=== PATIENT | female | born 1945 | race Caucasian/White ===

== ENCOUNTER → 2016-11-05 | Outpatient (CLI) | payer MEDICARE ==
[~2016-11-05] MED LIST: ATIVAN1 MG PO
== END | disposition home or self-care (01) ==
LOC: RAD 10:38
DX: M81.0 Age-related osteoporosis without current pathological fracture (principal); M85.862 Other specified disorders of bone density and structure, left lower leg; M54.5 Low back pain; M25.551 Pain in right hip; Z78.0 Asymptomatic menopausal state

== ENCOUNTER 2016-11-18 10:35 | Inpatient (IN) | payer MEDICARE ==
[~2016-11-18] VITALS: Ht 167.6 cm; Wt 77.3 kg
[2016-11-18] MEDS ORDERED: BUPROPION HYDR100 MG PO (10:40)
[2016-11-18] MEDS ORDERED: SIMVASTATIN40 MG PO (10:41)
[2016-11-18] MEDS ORDERED: ELIQUIS5 M1 PO (10:41)
[2016-11-18] MEDS ORDERED: TEMAZEPAM30 MG PO (10:41)
[2016-11-18] MEDS ORDERED: CALCIUM 600 +1 EA10 PO (10:41)
[2016-11-18 10:42] VITALS: BP 126/78
[2016-11-18 11:21] LABS: BASO % 0.6 % (0.0-1.0); EOS % 0.3 % (1.0-4.0); HEMATOCRIT 39.8 % (37.0-47.0); HEMOGLOBIN 13.3 g/dl (12.0-16.0); LYMPH % 15.5 % (27.0-41.0); MEAN CELL VOLUME 93.2 fl (81.0-99.0); MEAN CORPUSCULAR HGB 31.1 pg (27.0-31.0); MEAN CORPUSCULAR HGB CONC 33.4 g/dl (33.0-37.0); MEAN PLATELET VOLUME 9.1 fl (9.6-12.3); MONO # 0.5 10*3/uL (0.1-1.0); MONO % 7.1 % (3.0-9.0); NEUT # 5.1 10*3/uL (2.3-7.9); NEUT % 76.2 % (47.0-73.0); PLATELET COUNT AUTOMATED 202 10*3/uL (130-400); RED BLOOD COUNT 4.27 10*6/uL (4.10-5.10); RED CELL DISTRI WIDTH 13.2 % (0-14.5); WHITE BLOOD COUNT 6.7 10*3/uL (4.8-10.8)
[2016-11-18 11:36] LABS: ALBUMIN 3.9 gm/dl (3.1-4.5); ALKALINE PHOSPHATASE 80 U/L (45-117); BILIRUBIN, TOTAL 0.3 mg/dl (0.2-1.0); BUN 9 mg/dl (7-24); CARBON DIOXIDE 26 mmol/L (21-32); CHLORIDE 104 mmol/L (98-107); EST GLOM FILT AFRICAN AMERICAN > 60 ml/min; GLUCOSE 84 mg/dL (65-99); POTASSIUM 3.9 mmol/L (3.5-5.1); SGOT/AST 21 IU/L (3-35); SGPT/ALT 19 U/L (12-78); SODIUM 141 mmol/L (136-145); TOTAL PROTEIN 7.6 gm/dL (6.4-8.2)
[2016-11-18] MEDS ORDERED: AUGMENTIN 875875 MG PO (12:29)
[2016-11-18] MEDS ORDERED: PREDNISONE20 M1 PO (12:29)
[2016-11-18 12:33] VITALS: BP 137/74
[2016-11-18 13:19] LABS: LA>2 REFLEX 2 HR DRAW NOW
[2016-11-18] MEDS ORDERED: ATENOLOL25 MG PO (14:38)
[2016-11-18 15:17] VITALS: BP 143/85
[2016-11-18 16:30] VITALS: BP 142/68
[2016-11-18 18:28] LABS: CPK 57 U/L (26-192)
[2016-11-18 18:30] LABS: CKMB < 0.5 ng/ml (0.5-3.6); TROPONIN I < 0.015 ng/ml (<0.045)
[2016-11-18 21:03] VITALS: BP 137/60
[2016-11-18 22:02] LABS: BILIRUBIN NEGATIVE (NEGATIVE); BLOOD 1+ (NEGATIVE); CLARITY CLEAR (CLEAR); COLOR YELLOW (YELLOW); GLUCOSE NEGATIVE (NEGATIVE); KETONE NEGATIVE (NEGATIVE); LEUKO ESTERASE NEGATIVE (NEGATIVE); NITRITE NEGATIVE (NEGATIVE); PROTEIN NEGATIVE (NEGATIVE); SPECIFIC GRAVITY <= 1.005 (1.005-1.030); UROBILINOGEN 0.2 E.U./dl (0.2-1.0)
[2016-11-18 22:24] LABS: BACTERIA TRACE; URINE REFLEX COMMENT YES (NO); WBC 0-2 wbc/hpf (0-5)
[2016-11-19] VITALS: BP 133/62
[2016-11-19 00:45] LABS: CKMB 0.6 ng/ml (0.5-3.6); CPK 50 U/L (26-192)
[2016-11-19 00:51] LABS: TROPONIN I < 0.015 ng/ml (<0.045)
[2016-11-19 06:33] LABS: BASO % 0.7 % (0.0-1.0); EOS % 0.2 % (1.0-4.0); HEMOGLOBIN 11.6 g/dl (12.0-16.0); LYMPH # 1.9 10*3/uL (1.3-4.4); LYMPH % 33.7 % (27.0-41.0); MEAN CELL VOLUME 93.8 fl (81.0-99.0); MEAN CORPUSCULAR HGB 31.1 pg (27.0-31.0); MEAN CORPUSCULAR HGB CONC 33.1 g/dl (33.0-37.0); MONO # 0.4 10*3/uL (0.1-1.0); NEUT # 3.3 10*3/uL (2.3-7.9); NEUT % 58.2 % (47.0-73.0); PLATELET COUNT AUTOMATED 177 10*3/uL (130-400); RED BLOOD COUNT 3.73 10*6/uL (4.10-5.10); RED CELL DISTRI WIDTH 13.5 % (0-14.5); WHITE BLOOD COUNT 5.6 10*3/uL (4.8-10.8)
[2016-11-19 06:56] LABS: CPK 76 U/L (26-192); TROPONIN I < 0.015 ng/ml (<0.045)
[2016-11-19 07:02] LABS: BUN 8 mg/dl (7-24); CARBON DIOXIDE 25 mmol/L (21-32); CHLORIDE 111 mmol/L (98-107); CHOLESTEROL 123 mg/dL (<200); EST GLOM FILT AFRICAN AMERICAN > 60 ml/min; GLUCOSE 94 mg/dL (65-99); HDL CHOLESTEROL 69 mg/dl (40-60); LDL CHOLESTEROL 41 mg/dL (9-159); MAGNESIUM 2.2 mg/dL (1.5-2.1); PHOSPHOROUS 2.9 mg/dL (2.5-4.9); POTASSIUM 3.5 mmol/L (3.5-5.1); SODIUM 144 mmol/L (136-145); TRIGLYCERIDES 65 mg/dl (<150); VLDL CHOLESTEROL 13 mg/dL (6-40)
[2016-11-19 08:00] VITALS: BP 102/54
[2016-11-19 12:00] VITALS: BP 136/74
[2016-11-19 16:00] VITALS: BP 121/78
[2016-11-19 20:00] VITALS: BP 141/56
[2016-11-20 08:00] VITALS: BP 147/77
[2016-11-20] MEDS ORDERED: AVPAK AZITHROM250 M1 PO (11:10)
[2016-11-20] MEDS ORDERED: BENZONATATE100 M1 PO (11:10)
[2016-11-20] MEDS ORDERED: PREDNISONE10 MG PO (11:10)
[2016-11-20 12:00] VITALS: BP 150/78
== END 2016-11-20 12:32 | disposition home or self-care (01) | DRG 871 ==
LOC: ED 10:35 → EDHOLD 12:49 → 5E 12:49
PROVIDERS: Nurse Practitioner Family; Student in an Organized Health Care Education/Training Program
DX: A41.9 Sepsis, unspecified organism (principal); J18.9 Pneumonia, unspecified organism; J44.0 Chronic obstructive pulmonary disease with (acute) lower respiratory infection; J44.1 Chronic obstructive pulmonary disease with (acute) exacerbation; F33.9 Major depressive disorder, recurrent, unspecified; R65.20 Severe sepsis without septic shock; J20.9 Acute bronchitis, unspecified; E78.5 Hyperlipidemia, unspecified; I10 Essential (primary) hypertension; F43.10 Post-traumatic stress disorder, unspecified; I25.10 Atherosclerotic heart disease of native coronary artery without angina pectoris; I73.9 Peripheral vascular disease, unspecified; I45.10 Unspecified right bundle-branch block; Z90.710 Acquired absence of both cervix and uterus; Z95.828 Presence of other vascular implants and grafts; Z87.891 Personal history of nicotine dependence; Z82.49 Family history of ischemic heart disease and other diseases of the circulatory system; Z82.3 Family history of stroke; Z82.0 Family history of epilepsy and other diseases of the nervous system; Z79.899 Other long term (current) drug therapy

== ENCOUNTER → 2016-12-27 | Outpatient (CLI) | payer MEDICARE ==
[~2016-12-27] MED LIST changes: +ATENOLOL25 MG PO; +AUGMENTIN 875875 MG PO; +AVPAK AZITHROM250 M1 PO; +BENZONATATE100 M1 PO; +BUPROPION HYDR100 MG PO; +CALCIUM 600 +1 EA10 PO; +ELIQUIS5 M1 PO; +PREDNISONE10 MG PO; +PREDNISONE20 M1 PO; +SIMVASTATIN40 MG PO; +TEMAZEPAM30 MG PO
[2016-12-27 10:53] LABS: HEMOGLOBIN 12.8 g/dl (12.0-16.0); MEAN CORPUSCULAR HGB CONC 33.7 g/dl (33.0-37.0); MEAN PLATELET VOLUME 9.2 fl (9.6-12.3); RED BLOOD COUNT 4.13 10*6/uL (4.10-5.10); RED CELL DISTRI WIDTH 12.9 % (0-14.5); WHITE BLOOD COUNT 7.9 10*3/uL (4.8-10.8)
[2016-12-27 11:26] LABS: BILIRUBIN, TOTAL 0.5 mg/dl (0.2-1.0); BUN 11 mg/dl (7-24); CARBON DIOXIDE 29 mmol/L (21-32); CHLORIDE 103 mmol/L (98-107); CHOLESTEROL 183 mg/dL (<200); EST GLOM FILT AFRICAN AMERICAN > 60 ml/min; GLUCOSE 97 mg/dL (65-99); HDL CHOLESTEROL 72 mg/dl (40-60); POTASSIUM 4.4 mmol/L (3.5-5.1); SGOT/AST 19 IU/L (3-35); SGPT/ALT 17 U/L (12-78); SODIUM 139 mmol/L (136-145); TOTAL PROTEIN 7.1 gm/dL (6.4-8.2)
[2016-12-27 11:27] LABS: ALKALINE PHOSPHATASE 71 U/L (45-117); LDL CHOLESTEROL 88 mg/dL (9-159); TRIGLYCERIDES 113 mg/dl (<150); VLDL CHOLESTEROL 23 mg/dL (6-40)
== END | disposition home or self-care (01) ==
LOC: LAB 10:37
PROVIDERS: Family Medicine
DX: J18.9 Pneumonia, unspecified organism (principal); J44.9 Chronic obstructive pulmonary disease, unspecified; F41.1 Generalized anxiety disorder; G47.00 Insomnia, unspecified; E55.9 Vitamin D deficiency, unspecified; Z79.899 Other long term (current) drug therapy